=== PATIENT | male | born 1965 | race African-American/Black ===

== ENCOUNTER 2024-09-28 16:44 | Emergency (ER) | payer MEDICAID ==
[~2024-09-28] VITALS: Ht 177.8 cm; Wt 94.0 kg
[2024-09-28 16:46] VITALS: O2SAT 95
[2024-09-28] MEDS: TETANUS, DIPHTHERIA, PERTUSSIS VAC/PF 0.5ML (>10YR OLD) IM ONE (18:59)
[2024-09-28] MEDS: IBUPROFEN 600MG TABLET PO ONE (18:59)
[2024-09-28 19:09] VITALS: BP 145/80; PULSE 90; RESP 16; TEMP 37.28076; O2SAT 95
== END 2024-09-28 19:10 | disposition home or self-care (01) ==
LOC: ER 16:44
DX: S50.312A Abrasion of left elbow, initial encounter (principal); S80.212A Abrasion, left knee, initial encounter; I10 Essential (primary) hypertension; F19.90 Other psychoactive substance use, unspecified, uncomplicated; X58.XXXA Exposure to other specified factors, initial encounter; Y93.89 Activity, other specified; Y92.89 Other specified places as the place of occurrence of the external cause; Y99.8 Other external cause status
CPT/HCPCS: 72170; 73562; 90471; 90715; 99284